=== PATIENT | female | born 1980 | race Caucasian/White ===

== ENCOUNTER → 2017-06-21 | Outpatient (CLI) | payer BC ==
[~2017-06-21] MED LIST: NORGTAB3 PO; OXYC-90 PO
--- NOTE | 2017-06-21 12:47 | MAMMOGRAPHY REPORT ---
BILATERAL DIGITAL DIAGNOSTIC MAMMOGRAM TOMOSYNTHESIS WITH CAD AND TARGETED RIGHT ULTRASOUND: 06/21/2017 CLINICAL HISTORY: The patient reports a palpable lump in her right breast, which she has had since ap proximately June 06. She denies any associated pain, skin erythema, or other complaints. TECHNIQUE: Breast tomosynthesis in addition to standard 2D mammography was performed. Current study was also evaluated with a Computer Aided Detection (CAD) system. Bilateral CC and MLO 2-D and tomosy nthesis images were obtained. COMPARISON: No prior exams were available for comparison. BREAST COMPOSITION: The tissue of both breasts is heterogeneously dense, which may obscure small mas ses. FINDINGS: A triangle marker ospina the site of the palpable lump on the right upper outer quadrant. At the site of the palpable lump there is a round 9 mm mass which is predominately obscured by the tr iangle marker. The remainder of both breasts are negative, without suspicious masses, calcifications , or areas of architectural distortion noted. Targeted ultrasound was performed of the area of the palpable lump pointed out by the patient, in the right breast at approximately 10:00, 9 cm from the nipple. At the site of the palpable lump there i s a subdermal hypoechoic 6 x 7 x 7 mm mass with surrounding ill-defined hyperechoic tissue. A probab le thin hypoechoic tract to the skin is seen. Additionally, on clinical exam a tiny black punctum is seen on the skin at the site of the lump. Given the tract to the skin and given the black punctum o n the skin, the finding is probably benign and likely represents an epidermal inclusion/sebaceous cys t. IMPRESSION: ACR-BI-RADS CATEGORY 3: PROBABLY BENIGN, TARGETED ULTRASOUND ACR-BI-RADS CATEGORY 3: PRO BABLY BENIGN Hypoechoic subdermal 7 mm mass at the site of the palpable lump in the right 10:00 breast. The mass is probably benign and likely represents an epidermal inclusion/sebaceous cyst. Recommend clinical f ollow-up as well as conservative management including hot compresses, and recommend follow-up targete d ultrasound of the right breast in 6-8 weeks to reevaluate. The patient has been verbally notified of the results. Approximately 10% of breast cancers are not detected with mammography. A negative mammographic report should not delay biopsy if a clinically suggestive mass is present. Debra Vogt M.D. ah/:06/21/2017 11:43:22 Research Epidemiologist: Kacey SANTANA)([place]), [facility] letter sent: Follow Up Recommended 3 BI-RADS Code: ACR-BI-RADS Category 3: Probably Benign Ultrasound BI-RADS: ACR-BI-RADS Category 3: Pr obably Benign
== END | disposition home or self-care (01) ==
LOC: C.MAMM 10:36
PROVIDERS: ATTEND Family Medicine
DX: N63.10 Unspecified lump in the right breast, unspecified quadrant (principal)

== ENCOUNTER → 2017-08-16 | Outpatient (CLI) | payer BC ==
[~2017-08-16] MED LIST changes: -OXYC-90 PO; +OXYC1TAB3 PO
--- NOTE | 2017-08-16 15:18 | MAMMOGRAPHY REPORT ---
ULTRASOUND OF RIGHT BREAST: 08/16/2017 CLINICAL HISTORY: The patient reports for short interval follow-up of a right breast mass. The patie nt reports that the palpable lump in the right breast feels decreased in size. She denies any draina ge from the lump and she denies any pain or skin erythema. COMPARISON: Comparison is made to exams dated: 06/21/2017 mammogram and 06/21/2017 ultrasound - [facility]. TECHNIQUE: Real-time targeted ultrasound of the right breast was performed. FINDINGS: Real-time, high resolution targeted ultrasound was performed of the palpable mass in the r ight breast at 10:00, 9 cm from the nipple. Again noted is a subdermal hypoechoic mass which measure s 7 x 5 x 6 mm. The mass is not significantly changed in size compared to the June 2017 exam wher e it previously measured 6 x 7 x 7 mm. The surrounding hyperechoic tissue is decreased, likely repre senting decreasing surrounding inflammatory changes. On clinical exam a black punctum is seen on the skin at the site of the lump. Additionally, a tract to the skin from the mass was seen on the prior June 2017 exam. The mass is benign and most compatible with an epidermal inclusion/sebaceous cys t. IMPRESSION: ACR BI-RADS CATEGORY 2: BENIGN No significant interval change in size of hypoechoic subdermal 7 mm mass at the site of the palpable lump in the right 10:00 breast. Given that a black punctum is seen on the skin at the site of the roberto mp, the mass is benign and most compatible with an epidermal inclusion/sebaceous cyst. There is no s onographic evidence of malignancy. Recommend continued clinical follow-up; if the mass enlarges, the patient should return for repeat imaging. Otherwise, recommend routine bilateral screening mammogra ms starting at the age of 40. The patient was verbally notified of the results. Debra Vogt M.D. /:08/16/2017 14:27:49 Waxer Tender: Ashly SANTANA)(Cornelius), [facility] letter sent: Normal 1/2 BI-RADS Code: ACR BI-RADS Category 2: Benign
== END | disposition home or self-care (01) ==
LOC: C.MAMM 13:52
PROVIDERS: ATTEND Family Medicine
DX: N63.11 Unspecified lump in the right breast, upper outer quadrant (principal)